=== PATIENT | male | born 1965 | race African-American/Black ===

== ENCOUNTER 2018-11-25 00:20 | Emergency (ER) | payer OTHER, SELFPAY ==
[2018-11-25] MEDS ORDERED: Adacel (T-DAP) 0.5 ML SYRINGE ONE (00:32)
== END 2018-11-25 01:02 | disposition home or self-care (01) ==
LOC: SCSER 00:20
DX: S00.05XA Superficial foreign body of scalp, initial encounter (principal); L92.9 Granulomatous disorder of the skin and subcutaneous tissue, unspecified; F17.210 Nicotine dependence, cigarettes, uncomplicated; W45.8XXA Other foreign body or object entering through skin, initial encounter
CPT/HCPCS: 10120; 90471; 90715

== ENCOUNTER 2019-03-21 11:56 | Day surgery (SDC) | payer BC ==
[2019-03-20 12:12] VITALS: BMI 27.3
[2019-03-21 12:41] LABS: #Basophils 0.1 thou/uL (0.0-0.2); #Eosinphils 0.2 thou/uL (0.0-0.7); #Lymphocytes 3.3 thou/uL (1.20-3.40); #Monocytes 0.7 thou/uL (0.11-0.59); #Neutrophils 6.2 thou/uL (1.40-6.50); %Basophils 0.9 % (0.0-1.0); %Eosinophils 2.1 % (0.0-10.0); %Lymphocytes 31.2 % (21.0-51.0); %Monocytes 6.6 % (0.0-10.0); %Neutrophils 59.1 % (42.0-75.0); Hemoglobin 13.6 g/dL (14.0-18.0); Mean Corpuscular HGB CONC 32.4 g/dL (32.0-36.0); Mean Corpuscular Hemoglobin 31.1 pg (27.0-31.0); Mean Corpuscular Volume 95.9 fL (78.0-98.0); Mean Platelet Volume 6.7 fL (7.4-10.4); Platelet Count 335 thou/uL (130-400); RBC Distribution Width 12.6 % (11.5-14.5); Red Blood Cell (RBC) Count 4.37 mill/uL (4.70-6.10); White Blood Cell (WBC) Count 10.5 thou/uL (4.8-10.8)
[2019-03-21 12:44] LABS: Bacteria/HPF None Seen HPF (None Seen); Squamous Epithelial None Seen HPF (0-3); WBC/HPF 0-3 HPF (0-3)
[2019-03-21] MEDS ORDERED: Bupivacaine PF 0.5% 30 ML VIAL ONE (13:26)
[2019-03-21 13:41] LABS: Clarity Clear (Clear)
[2019-03-21 13:42] LABS: Bilirubin Negative (Negative); Blood, Urine Trace (Negative); Glucose, Urine (Dipstick) Negative (Negative); Leukocyte Negative Leu/uL (Negative); Nitrite Negative (Negative); Protein, Urine (Dipstick) Negative (Neg-Trace); Urobilinogen Normal mg/dL (Less than 2)
[2019-03-21] MEDS ORDERED: Fentanyl 100 MCG/2 ML VIAL ONE (14:57)
[2019-03-21] MEDS ORDERED: Midazolam HCl 2 mg/2 ml Vial ONE (14:57)
[2019-03-21] MEDS ORDERED: HYDROmorphone 0.5 MG/0.5 ML SYRINGE ONE (14:57)
[2019-03-21] MEDS ORDERED: Betamet Acet/Betamet Na Ph 30 MG/5 ML VIAL ONE (16:13)
[2019-03-21] MEDS ORDERED: Ketorolac Tromethamine 30 MG/ML VIAL ONE (17:13)
--- NOTE | 2019-03-22 11:51 | OP ---
DATE OF PROCEDURE: 03/21/2019 PREOPERATIVE DIAGNOSES: 1. Left middle finger digital nerve compression. 2. Large sebaceous cyst, ulnar aspect, proximal aspect of the left middle finger, proximal phalanx. PROCEDURES PERFORMED: 1. Digital nerve neuroplasty. 2. Excisional biopsy of large benign mass that was 3 cm x 1.5 cm and had the form of a sebaceous cyst. FINDINGS: Therefore 3 x 1.5 cm large sebaceous cyst over the middle finger ulnar neurovascular bundle. ANESTHESIA: General LMA technique augmented by 20 mL of 0.5% Marcaine, 10 given pre-incision and 10 given after the incision was closed. DESCRIPTION OF PROCEDURE: After successful general LMA technique augmented by the anesthesia listed above, the patient's limb prepped and draped. A Lyndsay incision was outlined over the mass. Incision was carried through skin and subcutaneous tissue after the tourniquet was inflated and limb exsanguinated. Immediately, we saw the mass bulging into the dermis, began dissection proximally 0.5 cm and distal 0.5 cm. It was during the proximal dissection we discovered that we could visualize the common digital nerve and then followed this out to the digital nerve branches to the ulnar aspect of the middle finger/fourth web space. Once we had done this, we then followed the nerve where it went under and slightly radial to the proximal phalanx of this middle finger and then we dissected it free gently with a blunt dissecting Crile. We then were able to lift the mass out in toto without leaving any, we did not achieve margins as we sent the pathological expertise request and found that margins were clear. The mass had no further cystic [employer] toothpaste like liquid inside. We sent the mass to the pathologist, irrigated the wound very thoroughly, and deflated the tourniquet. We then closed the epidermis only with interrupted 4-0 nylon mattress pattern. The patient left the operating room without evidence of anesthetic or operative complication including this incident. Job ID: [id number]
--- NOTE | 2019-03-22 16:52 | EKG ---
Test Reason : PREOP Blood Pressure : / mmHG Vent. Rate : 057 BPM Atrial Rate : 057 BPM P-R Int : 204 ms QRS Dur : 082 ms QT Int : 432 ms P-R-T Axes : 070 073 044 degrees QTc Int : 420 ms Sinus bradycardia Otherwise normal ECG No previous ECGs available Confirmed by DR. Fran SNOWDEN ([id number]) on 03/22/2019 4:52:02 PM Referred By: CAM Confirmed By:DR. Fran SNOWDEN
== END 2019-03-21 18:05 | disposition home or self-care (01) ==
LOC: SDC 11:56
PROVIDERS: ATTEND Orthopaedic Surgery Hand Surgery
PROC: 0JBK0ZZ Excision of Left Hand Subcutaneous Tissue and Fascia, Open Approach (ICD-10-PCS; principal; 2019-03-21)
PROC: 01N60ZZ Release Radial Nerve, Open Approach (ICD-10-PCS; principal; 2019-03-21)
DX: L72.11 Pilar cyst (principal); G56.92 Unspecified mononeuropathy of left upper limb; F17.200 Nicotine dependence, unspecified, uncomplicated; Z79.2 Long term (current) use of antibiotics; Z79.899 Other long term (current) drug therapy
CPT/HCPCS: 36415; 81003; 81015; 85025; 88304; 93005; 93010; J0690; J0702; J1170; J1885; J2250; J3010; S0020

== ENCOUNTER 2024-04-04 22:23 | Inpatient (IN) | payer BC, SELFPAY ==
[~2024-04-04 22:23] MED LIST: Iopamidol-370 76% 500 ML MDV (1 ML CHARGE) ONE
[2024-04-04] MEDS ORDERED: Sodium Chloride 0.9% 100 ML ONE (22:34)
[2024-04-04] MEDS ORDERED: Ketamine In 0.9 % NaCl 50 MG/5 ML SYRINGE ONE (22:34)
[2024-04-04] MEDS ORDERED: CEFAZOLIN 2 GM VIAL ONE (22:34)
[2024-04-04] MEDS ORDERED: Boostrix 0.5 ML (Tdap) VIAL (>/=7 yrs of age) ONE (22:36)
[2024-04-04 22:44] LABS: #Basophils 0.07 10x3/uL (0.0-0.2); %Basophils 0.6 % (0.0-1.0); %Neutrophils 57.5 % (42.0-75.0); Hematocrit 38.7 % (42.0-52.0); Hemoglobin 12.7 g/dL (14.0-18.0); Mean Corpuscular HGB CONC 32.8 g/dL (32.0-36.0); Mean Corpuscular Hemoglobin 31.7 pg (27.0-31.0); Mean Corpuscular Volume 96.5 fL (78.0-98.0); Mean Platelet Volume 8.7 fL (7.4-10.4); Platelet Count 371 10x3/uL (130-400); RBC Distribution Width 13.6 % (11.5-14.5); Red Blood Cell (RBC) Count 4.01 mill/uL (4.70-6.10)
[2024-04-04] MEDS ORDERED: fentaNYL 50 mcg/mL 1 mL Vial ONE (22:45)
[2024-04-04 22:54] LABS: INR-International Normal Ratio 1.1; PTT 23.9 sec (22.9-36.1); Prothrombin Time 13.9 sec (12.0-14.7)
[2024-04-04 22:55] LABS: ALT (SGPT) 24 U/L (8-55); AST (SGOT) 36 U/L (5-34); Alkaline Phosphatase 69 U/L (40-110); Anion Gap 19 mmol/L (10-20); BUN (Urea Nitrogen) 12 mg/dL (8.4-25.7); Bilirubin, Total 0.3 mg/dL (0.2-1.2); Calc. Creatinine Clearance 0 mL/min (70-130); Calcium 9.4 mg/dL (7.8-10.44); Carbon Dioxide 20 mmol/L (23-31); Chloride 102 mmol/L (98-107); Estimated GFR 57; Globulin 3.1 g/dL (2.4-3.5); Glucose 130 mg/dL (80-115); Lipase 20 U/L (8-78); Potassium 3.5 mmol/L (3.5-5.1); Protein, Total 7.1 g/dL (5.8-8.1); Sodium 137 mmol/L (136-145)
[2024-04-04 23:34] LABS: Troponin I Less than 0.010 ng/mL (< 0.028)
[2024-04-05] MEDS ORDERED: fentaNYL 50 mcg/mL 1 mL Vial ONE ×3 (00:01→12:00)
[2024-04-05] MEDS ORDERED: Ketorolac Tromethamine 30 MG (1 mL) VIAL ONE (00:23)
[2024-04-05 01:07] LABS: Acetaminophen Less than 10 mcg/mL (Less than 10); Alcohol 77.9 mg/dL (Less than 10); Salicylate Less than 8.0 mg/dL (Less than 8.0)
[2024-04-05] MEDS ORDERED: Dextrose 5% in Water 1,000 ML IV PRN (01:26)
[2024-04-05] MEDS ORDERED: Ondansetron PF 4 MG/2 ML Vial IVP PRN (01:26)
[2024-04-05] MEDS ORDERED: Dextrose 50% Abboject 50 ML SYRINGE SLOW IVP PRN (01:26)
[2024-04-05] MEDS ORDERED: Glucagon 1 MG/ML KIT IM PRN (01:26)
[2024-04-05] MEDS ORDERED: Promethazine HCl 25 MG/ML VIAL IM PRN ×2 (01:26→16:11)
[2024-04-05] MEDS ORDERED: Morphine 4 MG/ML VIAL ONE (02:02)
[2024-04-05] MEDS ORDERED: Ondansetron PF 4 MG/2 ML Vial ONE ×2 (02:02→16:01)
[2024-04-05 03:05] VITALS: BMI 24.1
[2024-04-05 05:34] LABS: #Basophils 0.04 10x3/uL (0.0-0.2); #Eosinophils Less than 0.03 10x3/uL (0.0-0.7); %Basophils 0.2 % (0.0-1.0); %Lymphocytes 9.4 % (21.0-51.0); %Neutrophils 82.8 % (42.0-75.0); Hemoglobin 12.1 g/dL (14.0-18.0); Mean Corpuscular HGB CONC 32.7 g/dL (32.0-36.0); Mean Corpuscular Hemoglobin 31.3 pg (27.0-31.0); Mean Corpuscular Volume 95.9 fL (78.0-98.0); Mean Platelet Volume 8.8 fL (7.4-10.4); Platelet Count 322 10x3/uL (130-400); RBC Distribution Width 13.6 % (11.5-14.5); Red Blood Cell (RBC) Count 3.86 mill/uL (4.70-6.10)
[2024-04-05 05:37] LABS: Anion Gap 13 mmol/L (10-20); BUN (Urea Nitrogen) 11 mg/dL (8.4-25.7); Calc. Creatinine Clearance 78 mL/min (70-130); Calcium 8.9 mg/dL (7.8-10.44); Carbon Dioxide 23 mmol/L (23-31); Chloride 104 mmol/L (98-107); Estimated GFR 74; Glucose 102 mg/dL (80-115); Potassium 4.3 mmol/L (3.5-5.1); Sodium 136 mmol/L (136-145)
[2024-04-05] MEDS ORDERED: HYDROcodone/Acetaminophen 5/325 mg Tablet PO PRN (05:39)
[2024-04-05] MEDS ORDERED: Diazepam 5 MG TAB PO PRN (05:40)
[2024-04-05] MEDS: Morphine 4 MG/ML VIAL SLOW IVP PRN (06:29)
[2024-04-05] MEDS ORDERED: CEFAZOLIN 2 GM in Sodium Chloride 0.9% 100 ML IVPB SCH (07:30)
[2024-04-05] MEDS: HYDROcodone/Acetaminophen 10/325 mg Tablet PO PRN (07:40)
[2024-04-05] MEDS ORDERED: Lidocaine 1% PF 5 ML VIAL ONE (09:44)
[2024-04-05] MEDS ORDERED: PROPOFOL 20 ML ONE (09:44)
[2024-04-05] MEDS ORDERED: Rocuronium Bromide 10 MG/ML (10ML VIAL) ONE ×2 (09:44→12:09)
[2024-04-05] MEDS ORDERED: Glycopyrrolate 0.2 MG/ML 5 ML SYRINGE ONE (09:58)
[2024-04-05] MEDS ORDERED: NEOSTIGMINE 3 MG/3 ML SYRINGE ONE (09:58)
[2024-04-05] MEDS ORDERED: Vancomycin 1 GM VIAL ONE (10:40)
[2024-04-05] MEDS ORDERED: Thrombin 5000 UNITS/5 ML VIAL ONE (10:41)
[2024-04-05] MEDS ORDERED: Fentanyl 250 MCG/5 ML VIAL ONE (10:50)
[2024-04-05] MEDS ORDERED: PHENYLEPHRINE-NS 100 MCG/ML 10 ML SYRINGE ONE ×2 (11:30→11:54)
[2024-04-05] MEDS ORDERED: Phenylephrine 40 MG/NS 250 ML 250 ML ONE (12:39)
[2024-04-05] MEDS ORDERED: Dexamethasone 20 MG/5 ML VIAL ONE (13:19)
[2024-04-05 13:53] LABS: Hematocrit 33.5 % (42.0-52.0); Hemoglobin 11.1 g/dL (14.0-18.0); Platelet Count 294 10x3/uL (130-400)
[2024-04-05] MEDS ORDERED: CEFAZOLIN 1 GM VIAL ONE (14:09)
[2024-04-05] MEDS ORDERED: Sterile Water 20 ML ONE (14:10)
[2024-04-05] MEDS ORDERED: Mag-Al 1200 mg/1200 mg/30 ML UDCUP PO PRN (14:28)
[2024-04-05] MEDS ORDERED: SUGAMMADEX SODIUM 200 MG/2 ML VIAL ONE (15:51)
[2024-04-05] MEDS ORDERED: PACU-Morphine 4MG/ML VIAL SLOW IVP PRN (16:11)
[2024-04-05] MEDS ORDERED: Ondansetron HCl/PF 4 MG/2 ML Vial IVP PRN (16:11)
[2024-04-05] MEDS ORDERED: Morphine Sulfate 2 MG/ML SYRINGE SLOW IVP PRN (16:11)
[2024-04-05] MEDS ORDERED: HYDROmorphone 2 MG/ML VIAL SLOW IVP PRN (16:11)
[2024-04-05] MEDS ORDERED: fentaNYL PF 100 MCG/2 ML SYRINGE ONE (16:24)
[2024-04-05] MEDS: Famotidine 20 MG TAB PO SCH (16:51)
[2024-04-05] MEDS: Acetaminophen 325 MG TAB PO PRN (20:32)
[2024-04-05] MEDS: Pantoprazole DR 40 MG TAB PO SCH (20:33)
[2024-04-05] MEDS: Dexamethasone 4 MG TAB PO SCH (20:33)
[2024-04-05] MEDS: Lactated Ringer's 1,000 ML IV SCH (20:33)
[2024-04-05] MEDS: CEFAZOLIN 2 GM in Sodium Chloride 0.9% 100 ML IVPB SCH (20:37)
[2024-04-05] MEDS: tiZANidine HCl 4 MG TAB PO PRN (21:50)
[2024-04-06] MEDS: traMADol HCl 50 MG TAB PO PRN (02:54)
[2024-04-06 05:32] LABS: #Basophils Less than 0.03 10x3/uL (0.0-0.2); #Eosinophils Less than 0.03 10x3/uL (0.0-0.7); %Basophils 0.1 % (0.0-1.0); %Lymphocytes 4.7 % (21.0-51.0); %Monocytes 7.7 % (0.0-10.0); %Neutrophils 87.2 % (42.0-75.0); Hematocrit 36.5 % (42.0-52.0); Hemoglobin 11.9 g/dL (14.0-18.0); Mean Corpuscular HGB CONC 32.6 g/dL (32.0-36.0); Mean Corpuscular Hemoglobin 31.2 pg (27.0-31.0); Mean Corpuscular Volume 95.8 fL (78.0-98.0); Platelet Count 285 10x3/uL (130-400); RBC Distribution Width 13.3 % (11.5-14.5); Red Blood Cell (RBC) Count 3.81 mill/uL (4.70-6.10)
[2024-04-06] MEDS: Pantoprazole DR 40 MG TAB PO SCH (08:22)
[2024-04-07 04:58] LABS: #Basophils Less than 0.03 10x3/uL (0.0-0.2); #Eosinophils Less than 0.03 10x3/uL (0.0-0.7); %Basophils 0.1 % (0.0-1.0); %Eosinophils 0.1 % (0.0-10.0); %Lymphocytes 9.5 % (21.0-51.0); %Neutrophils 81.9 % (42.0-75.0); Hematocrit 32.5 % (42.0-52.0); Hemoglobin 10.8 g/dL (14.0-18.0); Mean Corpuscular HGB CONC 33.2 g/dL (32.0-36.0); Mean Corpuscular Hemoglobin 31.6 pg (27.0-31.0); Mean Platelet Volume 9.3 fL (7.4-10.4); Platelet Count 246 10x3/uL (130-400); RBC Distribution Width 13.5 % (11.5-14.5); Red Blood Cell (RBC) Count 3.42 mill/uL (4.70-6.10)
[2024-04-07] MEDS: Milk Of Magnesia 30 ML UDCUP PO PRN (10:13)
[2024-04-07] MEDS ORDERED: Bisacodyl 10 MG SUPP PR PRN (10:53)
[2024-04-07] MEDS ORDERED: Mineral Oil ENEMA PR PRN (10:54)
[2024-04-07] MEDS: Bisacodyl 5 MG TAB PO PRN (19:44)
[2024-04-07] MEDS: Enoxaparin 40 MG (0.4 mL) SYRINGE SC SCH (19:45)
[2024-04-08 05:24] LABS: #Basophils 0.03 10x3/uL (0.0-0.2); %Basophils 0.2 % (0.0-1.0); %Eosinophils 0.3 % (0.0-10.0); %Lymphocytes 14.7 % (21.0-51.0); %Monocytes 8.3 % (0.0-10.0); %Neutrophils 76.2 % (42.0-75.0); Hematocrit 33.4 % (42.0-52.0); Hemoglobin 11.1 g/dL (14.0-18.0); Mean Corpuscular HGB CONC 33.2 g/dL (32.0-36.0); Mean Corpuscular Hemoglobin 31.2 pg (27.0-31.0); Mean Corpuscular Volume 93.8 fL (78.0-98.0); Mean Platelet Volume 9.3 fL (7.4-10.4); Platelet Count 274 10x3/uL (130-400); RBC Distribution Width 13.2 % (11.5-14.5); Red Blood Cell (RBC) Count 3.56 mill/uL (4.70-6.10)
[2024-04-08] MEDS: FLU (Fluarix Triv) TS24-25(6MOS UP)/PF 45 MCG/0.5 ML Syringe IM ONE (10:22)
[2024-04-10] MEDS: Senokot S 8.6-50 MG TAB PO SCH (09:15)
[2024-04-10] MEDS: Polyethylene Glycol 3350 17 GM Packet PO SCH (09:15)
[2024-04-11] MEDS ORDERED: Sodium Chloride 0.9% 100 ML ONE (11:25)
[2024-04-11] MEDS ORDERED: CEFAZOLIN 2 GM VIAL ONE (11:25)
[2024-04-11] MEDS ORDERED: fentaNYL PF 100 MCG/2 ML SYRINGE ONE (11:33)
[2024-04-11] MEDS ORDERED: Lidocaine 1% PF 5 ML VIAL ONE (11:33)
[2024-04-11] MEDS ORDERED: PROPOFOL 20 ML ONE (11:33)
[2024-04-11] MEDS ORDERED: Sevoflurane 250 ML INH ANEST BOTTLE ONE (11:34)
[2024-04-11] MEDS ORDERED: Ondansetron PF 4 MG/2 ML Vial ONE (14:14)
[2024-04-11] MEDS ORDERED: Ondansetron HCl/PF 4 MG/2 ML Vial IVP PRN (14:25)
[2024-04-11] MEDS ORDERED: Promethazine HCl 25 MG/ML VIAL IM PRN ×2 (14:25→20:36)
[2024-04-11] MEDS ORDERED: fentaNYL 50 mcg/mL 1 mL Vial ONE ×4 (14:28→15:18)
[2024-04-11] MEDS ORDERED: Meperidine HCl/PF 25 MG (1 mL) VIAL ONE (14:51)
[2024-04-11] MEDS: Morphine 2 MG/ML VIAL SLOW IVP PRN (19:35)
[2024-04-11] MEDS: CEFAZOLIN 2 GM in Sodium Chloride 0.9% 100 ML IVPB SCH (19:35)
[2024-04-11] MEDS ORDERED: HYDROcodone/Acetaminophen 10/325 mg Tablet PO PRN (20:30)
[2024-04-11] MEDS ORDERED: Naloxone HCl 0.4 mg/ml Vial IV PRN (20:36)
[2024-04-11] MEDS ORDERED: Ondansetron PF 4 MG/2 ML Vial IVP PRN (20:36)
[2024-04-11] MEDS ORDERED: diphenhydrAMINE 50 MG/ML VIAL IM PRN (20:36)
[2024-04-11] MEDS ORDERED: diphenhydrAMINE 50 MG/ML VIAL IVP PRN (20:36)
[2024-04-11] MEDS ORDERED: Communication Order-Pharmacy FS SCH (20:45)
[2024-04-11] MEDS: Lactulose 20 GM (30 mL) UDCUP PO SCH (21:59)
[2024-04-11] MEDS: HYDROmorphone/PF 10 MG in Sodium Chloride 0.9% 99 ML IV PRN (21:59)
[2024-04-12 08:17] LABS: #Basophils Less than 0.03 10x3/uL (0.0-0.2); %Basophils 0.1 % (0.0-1.0); %Eosinophils 0.3 % (0.0-10.0); %Lymphocytes 10.7 % (21.0-51.0); %Monocytes 16.3 % (0.0-10.0); %Neutrophils 71.9 % (42.0-75.0); Mean Corpuscular HGB CONC 33.3 g/dL (32.0-36.0); Mean Corpuscular Volume 95.9 fL (78.0-98.0); Mean Platelet Volume 8.5 fL (7.4-10.4); Platelet Count 397 10x3/uL (130-400); RBC Distribution Width 12.3 % (11.5-14.5); Red Blood Cell (RBC) Count 3.44 mill/uL (4.70-6.10)
[2024-04-12] MEDS ORDERED: traMADol HCl 50 MG TAB PO PRN (11:39)
[2024-04-12] MEDS: HYDROcodone/Acetaminophen 10/325 mg Tablet PO PRN ×2 (12:58→17:57)
[2024-04-12 15:38] VITALS: BMI 24.1
[2024-04-13 05:52] LABS: #Basophils 0.04 10x3/uL (0.0-0.2); %Basophils 0.3 % (0.0-1.0); %Eosinophils 0.8 % (0.0-10.0); %Lymphocytes 10.6 % (21.0-51.0); %Monocytes 15.4 % (0.0-10.0); %Neutrophils 72.2 % (42.0-75.0); Hematocrit 28.8 % (42.0-52.0); Hemoglobin 9.5 g/dL (14.0-18.0); Mean Corpuscular Hemoglobin 31.7 pg (27.0-31.0); Mean Platelet Volume 8.7 fL (7.4-10.4); Platelet Count 394 10x3/uL (130-400); RBC Distribution Width 12.4 % (11.5-14.5)
[2024-04-13] MEDS ORDERED: fentaNYL 50 mcg/mL 1 mL Vial SLOW IVP PRN (10:49)
[2024-04-13] MEDS: traMADol HCl 50 MG TAB PO PRN (14:03)
[2024-04-15] MEDS: diphenhydrAMINE 25 MG CAP PO PRN (22:38)
[2024-04-16 10:06] LABS: #Basophils 0.03 10x3/uL (0.0-0.2); #Eosinophils Less than 0.03 10x3/uL (0.0-0.7); %Basophils 0.2 % (0.0-1.0); %Eosinophils 0.1 % (0.0-10.0); %Lymphocytes 4.5 % (21.0-51.0); %Monocytes 6.1 % (0.0-10.0); %Neutrophils 88.6 % (42.0-75.0); Hematocrit 29.5 % (42.0-52.0); Hemoglobin 10.1 g/dL (14.0-18.0); Mean Corpuscular HGB CONC 34.2 g/dL (32.0-36.0); Mean Corpuscular Hemoglobin 31.2 pg (27.0-31.0); Mean Platelet Volume 8.5 fL (7.4-10.4); Platelet Count 634 10x3/uL (130-400); RBC Distribution Width 12.3 % (11.5-14.5); Red Blood Cell (RBC) Count 3.24 mill/uL (4.70-6.10)
[2024-04-16 10:36] LABS: ALT (SGPT) 59 U/L (8-55); AST (SGOT) 56 U/L (5-34); Albumin 2.8 g/dL (3.4-4.8); Alkaline Phosphatase 215 U/L (40-110); Anion Gap 15 mmol/L (10-20); BUN (Urea Nitrogen) 23 mg/dL (8.4-25.7); Bilirubin, Total 0.6 mg/dL (0.2-1.2); Calc. Creatinine Clearance 82 mL/min (70-130); Carbon Dioxide 26 mmol/L (23-31); Chloride 95 mmol/L (98-107); Estimated GFR 78; Globulin 4.7 g/dL (2.4-3.5); Glucose 129 mg/dL (80-115); Potassium 4.9 mmol/L (3.5-5.1); Protein, Total 7.5 g/dL (5.8-8.1); Sodium 131 mmol/L (136-145)
[2024-04-16] MEDS ORDERED: traMADol HCl 50 MG TAB PO PRN (19:30)
[2024-04-16] MEDS: Pregabalin 50 MG CAP PO SCH (20:15)
[2024-04-16] MEDS: Tamsulosin HCl 0.4 MG CAP PO SCH (20:15)
[2024-04-16] MEDS: traMADol HCl 50 MG TAB PO SCH (23:45)
[2024-04-17] MEDS ORDERED: Ibuprofen 600 MG TAB PO PRN (14:42)
[2024-04-17] MEDS: Acetaminophen 500 MG TAB PO SCH (17:19)
[2024-04-18 06:50] VITALS: TEMP 98.5
[2024-04-18 07:55] VITALS: BP 110/65
[2024-04-18] MEDS: traMADol HCl 50 MG TAB PO PRN (09:18)
== END 2024-04-18 13:46 | disposition home or self-care (01) | DRG 958 ==
LOC: ERS 22:23 → SURG B 04-05 01:31
PROVIDERS: ADMIT Surgery; ATTEND Surgery
PROC: 0SG0071 Fusion of Lumbar Vertebral Joint with Autologous Tissue Substitute, Posterior Approach, Posterior Column, Open Approach (ICD-10-PCS; principal; 2024-04-05)
PROC: 0RGA071 Fusion of Thoracolumbar Vertebral Joint with Autologous Tissue Substitute, Posterior Approach, Posterior Column, Open Approach (ICD-10-PCS; 2024-04-05)
PROC: 00NY0ZZ Release Lumbar Spinal Cord, Open Approach (ICD-10-PCS; 2024-04-05)
PROC: 0QS004Z Reposition Lumbar Vertebra with Internal Fixation Device, Open Approach (ICD-10-PCS; 2024-04-05)
PROC: 0PSJ04Z Reposition Left Radius with Internal Fixation Device, Open Approach (ICD-10-PCS; 2024-04-05)
PROC: 0QSH35Z Reposition Left Tibia with External Fixation Device, Percutaneous Approach (ICD-10-PCS; 2024-04-05)
PROC: 3E033XZ Introduction of Vasopressor into Peripheral Vein, Percutaneous Approach (ICD-10-PCS; 2024-04-05)
PROC: 0QSK04Z Reposition Left Fibula with Internal Fixation Device, Open Approach (ICD-10-PCS; 2024-04-11)
PROC: 0QSH04Z Reposition Left Tibia with Internal Fixation Device, Open Approach (ICD-10-PCS; 2024-04-11)
PROC: 0QPHX5Z Removal of External Fixation Device from Left Tibia, External Approach (ICD-10-PCS; 2024-04-11)
DX: S32.011A Stable burst fracture of first lumbar vertebra, initial encounter for closed fracture (principal); K56.7 Ileus, unspecified; S34.139A Unspecified injury to sacral spinal cord, initial encounter; S82.832B Other fracture of upper and lower end of left fibula, initial encounter for open fracture type I or II; S22.088A Other fracture of T11-T12 vertebra, initial encounter for closed fracture; S52.532A Colles' fracture of left radius, initial encounter for closed fracture; S82.872B Displaced pilon fracture of left tibia, initial encounter for open fracture type I or II; S22.41XA Multiple fractures of ribs, right side, initial encounter for closed fracture; W13.9XXA Fall from, out of or through building, not otherwise specified, initial encounter
CPT/HCPCS: 29125; 29515; 36415; 70450; 71045; 71260; 72125; 72148; 74018; 74177; 76376; 80048; 80053; 80307; 83690; 84484; 85025; 85610; 85730; 86850; 86900; 86901; 90471; 90715; 93005; 96374; 96375; 96376; C1713; C1781; C1889; G0390; J0690; J1100; J1650; J1885; J2175; J2272; J2405; J2704; J3010; J3370; J3490; J7120; J8540; Q9967

== ENCOUNTER 2025-02-01 11:21 | Outpatient (CLI) | payer OTHER | END 2025-02-01 11:22 | disposition home or self-care (01) | LOC: BICCT 11:21 | PROVIDERS: ATTEND Family Medicine | DX: Z12.2 Encounter for screening for malignant neoplasm of respiratory organs (principal); F17.210 Nicotine dependence, cigarettes, uncomplicated | CPT/HCPCS: 71271 ==

== ENCOUNTER 2025-03-13 15:43 | Outpatient (CLI) | payer OTHER | END 2025-03-13 15:44 | disposition home or self-care (01) | LOC: SCSMRI 15:43 | PROVIDERS: ATTEND Orthopaedic Surgery | DX: M51.16 Intervertebral disc disorders with radiculopathy, lumbar region (principal); M47.26 Other spondylosis with radiculopathy, lumbar region; Z98.1 Arthrodesis status; M48.061 Spinal stenosis, lumbar region without neurogenic claudication; Z96.698 Presence of other orthopedic joint implants | CPT/HCPCS: 72148 ==